=== PATIENT | female | born 1940 | race Caucasian/White ===

== ENCOUNTER 2020-06-02 11:22 | Inpatient (IN) | payer MEDICARE, OTHER ==
[~2020-06-02] VITALS: Ht 172.7 cm; Wt 61.4 kg
[~2020-06-02 11:22] MED LIST: ALPRAZOLAM0.5 MG PO; AMLODIPINE BES2.5 MG PO; ARMOUR THYROID60 MG PO; ASPIR-LOW81 MG PO; BALMEX100 GM TOP; BENEFIBER236 GM; COCONUT OIL1000 MG PO; DAILY VITAMIN1 EAC2 PO; LEVOTHYROXINE50 MCG PO; NICODERM CQ1 EAC1 TD; OMEPRAZOLE40 MG PO; PERCOCET 5-3251 EACH PO; PROMETHAZINE HC25 M1 PO; VITAMIN B-121000 MCG PO; VITAMIN D1000 UNI1 PO; ZITHROMAX TRI-500 MG PO; ZOFRAN4 MG PO
[2020-06-05] MEDS ORDERED: VIT C-ROSE HIP500 MG PO (15:04)
[2020-06-05] MEDS ORDERED: OMEPRAZOLE20 MG PO (15:06)
[2020-06-05] MEDS ORDERED: WELLBUTRIN SR150 MG PO (15:06)
[2020-06-05] MEDS ORDERED: REVLIMID2.5 MG PO (15:07)
[2020-06-05] MEDS ORDERED: MIRALAX17 GM PO (15:08)
--- NOTE | 2020-06-14 08:37 | NUR ---
06/14/20 0837 Valerie Anthony 0825- PT TO PACU IN SF POSITION. EYES CLOSED DOES NOT RESPOND TO VERBAL OR TACTILE STIMULI. ORAL AIRWAY IN PLACE. BREATHING EASY AND UNLABORED. SPO2 >95% ON 6 L O2 VIA SIMPLE MASK. 0828- PT OPENS EYES AND FOLLOWS COMMANDS. ORAL AIRWAY REMOVED. PT WITH PRODUCTIVE COUGH. SUCTIONING PROVIDED AND HOB ELEVATED. BREATHING EASY AND UNLABORED. VSS. PT DENIES PAIN AND NAUSEA BUT REMAINS VERY DROWSY. 0935- PT CONTINUES WITH INTERMITTANT COUGHING, PRODUCTIVE. SUCTIONING PROVIDED. PT CONTINUES TO DENY PAIN AND NAUSEA. VSS. SPO2 >95% ON ROOM AIR.
--- NOTE | 2020-06-14 09:23 | NUR ---
PATIENT ARRIVES TO ROOM 123 ON CART FROM SURGERY. ASSESSMENT COMPLETED. DENIES PAIN AT THIS TIME. CALL LIGHT IN REACH, BED RAILS UP X2. VITAL OBTAINED.
--- NOTE | 2020-06-14 11:28 | NUR ---
Continues to deny pain. Vitals obtained. Small amount of sanguinous drainage to aric-pad noted. Denies other needs. Call light in [facility], bed rails up X2.
--- NOTE | 2020-06-14 12:56 | NUR ---
DR. WARREN NOTIFIED OF BLOOD PRESSURES BECOMING ELEVATED, PATIENT ASYMPTOMATIC, DENYING PAIN. NO NEW ORDERS AT THIS TIME. NOTIFY DR. WARREN IF CONTINUING TO INCREASE.
--- NOTE | 2020-06-14 14:04 | NUR ---
LYING IN BED. ASSESSMENT COMPLETED. WANTS TO NAP. ALLOWED TO REST. SPOUSE AT BEDSIDE. NO CHANGES TO MIGUEL ANGEL-PAD DRAINAGE.
--- NOTE | 2020-06-14 15:29 | NUR ---
Patient sitting up in bed. States she has a headache at this time. PRN ibuprofen taken. When getting ready to take medication, suddenly becomes nauseated with 500 mL emesis. PRN zofran given. States she will likely take ibuprofen later when nausea subsides. Denies other needs. Spouse at bedside. Call light in reach. Bed rails up X2.
--- NOTE | 2020-06-14 16:06 | NUR ---
States zofran has been effective. Pulse ox continues to alarm when she is trying to sleep. O2 per NC replaced on patient at 1.5 L/min. O2 sats immediately up to 94%. States she does not want motrin at this time. WIll call if she decides she needs it. Spouse remains at bedside, call light in reach.
--- NOTE | 2020-06-14 17:35 | NUR ---
Emesis X1 of 300 mL. Scheduled scopalamine patch applied and meclizine given. Denies other needs.
--- NOTE | 2020-06-14 18:29 | NUR ---
PATIENTS VITALS DONE AND CHARTED. RODRIGUEZ EMPTIED. PATIENT DID NOT WANT ANY CARES DONE JUST WANTS TO SLEEP. NOTHING ELSE NEEDED.
--- NOTE | 2020-06-14 18:34 | NUR ---
Surgery today. Dizziness and emesis X2, scopolamine patch and meclizine given. Remains on O2 at 1.5 L/min per nasal canula, desats with sleep on room air. Continues to deny pain, small amount of sanguinous drainage from surgery. Gibson catheter remains in place.
--- NOTE | 2020-06-14 21:00 | NUR ---
o2 1.5l nc. coop with assessment, dangled to edge of bed and stood up for 1-2 minutes, c/o dizziness and feeling nauseated, declined phenergan "I already has had too much medication. repositoned in bed, scds in place, vag pack with scant amount of red fluid, clean pad given
--- NOTE | 2020-06-14 22:24 | NUR ---
No further c/o feeling nauseated. eye mask in place and ear protectors. IVF infusing w/o problems, f/c, scds. liquids and call light at bedside
--- NOTE | 2020-06-15 00:17 | NUR ---
IVF COMPLETED, DC'D PER ORDERS, AWAKE, NO FURTHER C/O DIZZINES, DENIES NEED FOR ANTIEMETIC MED. F/C AND VAGINAL PACK IN PLACE, AWARE OF TRYING TO GO FOR A WALK SOMETIME LATER. NOT MAGDALENE RECEPTIVE. BED ALARM ON, PER SAFETY, WILL CONTINUE TO MONITOR. NO C/O PAIN, SLA PATENT
--- NOTE | 2020-06-15 02:51 | NUR ---
CALL LIGHT ANSWERED. SBA TO BEDSIDE COMMODE. PATIENT'S PACKING FEEL AND PRIMARY RN NOTIFIED. PATIENT HAD 1 VERY SMALL BOWEL MOVEMENT. PATIENT'S STATED "ITS BLEEDING, I WIPED". PRIMARY RN NOTIFIED. PATIENT IS BACK IN BED. MIGUEL ANGEL PAD PROVIDED. SCD'S AND CPOX ARE BACK ON. CALL LIGHT WITHIN REACH.
--- NOTE | 2020-06-15 02:55 | NUR ---
UP TO BSC, VAG PACKING FELL OUT ON ITS OWN. HAD SMALL BM, F/C PATENT. DENIES C/O LIGHTHEADNES, DECLINES TO RECEIVE ANTIEMETICS, DECLINES TO GO FOR A WALK. "jUST LET ME GO BACK TO BED, I HAVE NOT SLEPT MUCH, AND NOT FEEL GOOD", BACKA TO BED, DECLINES NEED FOR PAIN MED. CALL LIGHT AND FLUIDS AT BEDSIDE
--- NOTE | 2020-06-15 04:12 | NUR ---
In bed O2 1L NC, eyes closed, no s/sx distress, call light and fluids at bedside, f/c patent
--- NOTE | 2020-06-15 05:59 | NUR ---
PT HAS BEEN WEANED OFF O2 FROM 1.5L/NC TO ROOM AIR AT THIS TIME, TOLERATING ROOM AIR WELL, CPOX DC'D. AWAKE AND ALERT, STATED "I HAVE NOT SLEPT AT ALL, THATS WHY I HAD NOT WANTED TO GO FOR A WALK". PT DID DANGLED AND HAS WALKED TO [facility] AT EDGE OF BED, TOLERATED FAIR SHE C/O LIGHTHEADNESS ON RETURN TO BED. PT C/O LIGHTHEADNESS AND N/V AT BEGINING OF SHIFT, DECLINED PHENERGAN AND HAS DECLINED FURTHER C/O FEELING NAUSEATED OR NEEDING PAIN OR ANTIEMETICS. TOLERATING SIPS OF FLUIDS. IVF LR AT 125 INFUAING W/O PROBLOMS. VAGINAL PACKING FELL OFF WHEN PT GOT UP TO BSC. VERY SCANT AMOUNT OF RED VAGINAL DISCHARGE NOTED SINCE THEN. F/C NOT CHRONIC IN PLACE, DRAINING QS, YELLOW URINE. ORDERS STATED TO DC F/C WHEN PT AMBULATING, PT HAS NOT AMBULATED W TOLERANCE. WILL TRY AGAIN. COOP WITH ASSESSMENT, SLIGHTLY IRRITABLE AFFECT AT TIMES BUT REDIRECTABLE AND FOLLOWS INSTRUCTIONS. USES CALL LIGHT.
--- NOTE | 2020-06-15 06:21 | NUR ---
ASSISTED PATIENT WALK AROUND THE HALLWAY X1. PATIENT IS BACK IN BED.
--- NOTE | 2020-06-15 06:25 | NUR ---
PATIENT UP AMBULATING IN HALLWAY WITH JABIER ESTRADA. BACK IN ROOM. MICHAEL D/C'Kiya. COFFEE PROVIDED. CALL LIGHT IN REACH.
--- NOTE | 2020-06-15 07:17 | NUR ---
Report from Villa Barrera RN. Lying in bed, eyes closed. Respirations even and unlabored. Call light in reach, bed rails up X2.
--- NOTE | 2020-06-15 08:15 | NUR ---
PATIENT SITTING ON THE EDGE OF THE BED. WARM WASHCLOTH OFFERED AND TAKEN. CALL LIGHT WITH IN REACH. NO FURTHER NEEDS AT THIS TIME.
[2020-06-15] MEDS ORDERED: NP THYROID15 MG PO (08:29)
--- NOTE | 2020-06-15 08:39 | NUR ---
ASSESSMENT COMPLETED. AM MEDICATIONS ADMINISTERED.
--- NOTE | 2020-06-15 11:00 | NUR ---
Spoke with pt. She lives in [place] with her spouse. She is active and does not use any DME. Is ready for dc, but needs to be able to void. Denies any needs for SDOH, plans on dc to home with spouse and he will assist as needed.
[2020-06-15] MEDS ORDERED: BUPROPION XL150 MG PO (11:13)
--- NOTE | 2020-06-15 11:13 | NUR ---
Up to bathroom to attempt to void. 100 mL of urine output. Bladder scanned for residual, 290 mL noted. States she did not finish voiding due discomfort and burning.
[2020-06-15] MEDS ORDERED: OMEPRAZOLE40 MG PO (11:14)
--- NOTE | 2020-06-15 11:56 | NUR ---
MED REC COMPLETE
--- NOTE | 2020-06-15 12:15 | NUR ---
125 ML URINE OUTPUT WITH SOME INCONTINENCE PER PATIENT. BLADDER SCANNED WITH 309 ML NOTED.
--- NOTE | 2020-06-15 15:13 | NUR ---
Voided X1, states she missed the hat. Bladder scanned with 223 mL in bladder. States she has not been drinking well. Fresh ice water provided. States she is too tired to ambulate in [place] at this time. Ecouraged to ambulate to prevent complications. Verbalizes understanding.
--- NOTE | 2020-06-15 17:39 | NUR ---
DR. WARREN NOTIFIED OF POST VOID RESIDUALS GREATER THAN 200 ML Q VOID. ORDERS TO RESTART RODRIGUEZ.
--- NOTE | 2020-06-15 18:05 | NUR ---
16 FR RODRIGUEZ CATHETER PLACED USING STERILE TECHNIQUE AFTER SITE CLEANSED WITH PROVIDED CLEANSING CLOTHS AND IODINE. BALLOON INFLATED WITH 10 ML STERILE NS. IMMEDIATE RETURN OF STRAW COLORED URINE. PATIENT TOLERATED WITH SOME COMPLAINTS OF DISCOMFORT. DENIES OTHER NEEDS AT THIS TIME.
--- NOTE | 2020-06-15 20:07 | NUR ---
Pt awake, alert and oriented, cooperative with HS assessment. On room air. SL patent. VS WNK, very scant amont of brown/red vginal drainage noted. pad inplace. f/c patent, draining QS yellow urine, SCDS off at her requests, declines to ambulate at this time. "I did not slept well last night, Pranav sick. I want to sleep tonight and then Ill hit the hallways in am. I dont want to be bother tonight, I want to sleep. If I woke up during the night Ill call you so you can do a visual that Pranav ok". call light at bedside
--- NOTE | 2020-06-15 23:25 | NUR ---
walked hallways earlier by self, currently resting, inroom
--- NOTE | 2020-06-16 00:20 | NUR ---
Pt had asked earlier not to bother her, door closed
--- NOTE | 2020-06-16 05:50 | NUR ---
pt awakes easily. Took her own home med Thyroid. fresh water given on room air, very scant amount of vaginal red drainage noted. f/c patent. sl patent. Pt to go for a walk then f/c will be dc'd. Slept all shift. in room
--- NOTE | 2020-06-16 06:36 | NUR ---
Pt states she walked hallways. In bed, calm, f/c dc'd, 10cc water balloon deflated, tip intact. procedure explained, coop. Aware of post void residual checks stated understanding
--- NOTE | 2020-06-16 07:20 | NUR ---
SHIFT REPORT FROM MATTHEW LUDWIG INCLUDED: pt had her in the room with her most of the evening and her has been unpleasant and irritable with nightly cares, "insisting the pt be left alone to sleep better". pt had stable vitals and sufficient urine output through the night and her wiley catheter was DCd this morning by the RN and the pt is due to void, followed by bladder scan. pt currently alert and oriented, sitting up in bed, reading the newspaper with her at bedside. pt was pleasant and cooperative upon greeting, was aggressively questioning her care plans for the day. pt and reassured that we would take good care of her and informed of known cares for the day and told that they would be updated when I knew more or got more information. Both seemed to respond well to therapeutic communication. pt in bed, table and call light within reach. pt verbalized that she would call us when she had her first void this morning.
--- NOTE | 2020-06-16 08:45 | NUR ---
MED PASS + ASSESSMENT pt assessment complete, VSS. pt reports that she has not been able to void at this time. Gibson was pulled at 0630 this morning. pt has hat in toilet and verbalized understanding of need to void and post risidual bladder scan to follow. pt was able to take all morning meds without difficulty, refusing the welbutrin. pt denies further needs at this time, table and call light within reach.
--- NOTE | 2020-06-16 10:00 | NUR ---
ROUNDING Came to give prn pain medicivine, pt reports another nurse had already administered this. Returned med. Pt attempted to void, unable to void. Pt sitting up in bed, talking with her who is at bedside.
--- NOTE | 2020-06-16 11:07 | NUR ---
Pt seen ambulating through halls unassisted, accompanied by her . SN Hugo.
--- NOTE | 2020-06-16 12:00 | NUR ---
ABDIAZIZ + CALLED pt in room visiting with . pt was able to void an unmeasured amount into toilet, and her residual volume in bladder was 152mls. MD Called and notified, came down to visit pt and wanted to have another trial void before considering DC to home. pt and her anticipating DC. pt in bed, table and call light within reach.
--- NOTE | 2020-06-16 13:00 | NUR ---
ROUNDING pt in room visiting with . pt denies pain and nausea at this time. pt reports that she is anxious to go home and is hopeful she wont need a wiley catheter. pt given lunch by her . pt able to eat the majority of her meal. pt denies further needs at this time, table and call light within reach.
--- NOTE | 2020-06-16 14:00 | NUR ---
ROUNDING patient is up ambulating the halls with her at this time.
[2020-06-16] MEDS ORDERED: IBUPROFEN800 MG PO (14:31)
[2020-06-16] MEDS ORDERED: SENNA-S LAXATI1 EACH PO (14:35)
--- NOTE | 2020-06-16 15:00 | NUR ---
ROUNDING pt in room visiting with . pt denies pain and nausea at this time. pt denies further needs at this time, table and call light within reach.
--- NOTE | 2020-06-16 15:23 | NUR ---
No change in plan for dc.
--- NOTE | 2020-06-16 16:00 | NUR ---
ROUNDING pt in room visiting with . pt denies pain and nausea at this time. pt was able to void again and this time she had 100mls out and residual of 102 pt denies further needs at this time, table and call light within reach.
--- NOTE | 2020-06-20 17:52 | OR ---
[facility] [address], [place] [address] Signed DATE OF OPERATION: 06/14/2020 SURGEON: Maritza Luz MD AUTOMATIC MOLD SANDER: Harpreet Block MD. PREOPERATIVE DIAGNOSES: Cystocele and rectocele. POSTOPERATIVE DIAGNOSIS: Rectocele. PROCEDURE: Rectocele repair. ANESTHESIA: Spinal with IV sedation. ESTIMATED BLOOD LOSS: 25 mL. DRAINS: Gibson catheter. PACKS: Vaginal. INDICATIONS AND FINDINGS: The patient is a 80-year-old female status post prior A and P repair with enterocele resection many years ago, who presented with recurrent vaginal prolapse and pressure. In the office, it was felt that she had a recurrent cystocele as well as rectocele. However at the time of surgery, there was no significant cystocele, but there was a significant rectocele, which was also fairly high in the vault. DESCRIPTION OF PROCEDURE: The patient was prepped and draped in the dorsal lithotomy position. A Gibson catheter was placed. The vaginal exam done and the conclusion made that there was no significant cystocele requiring repair. The rectocele repair was then begun. A triangle of tissue was removed from the perineal body with the knife. The vaginal mucosa was then Electronically Signed By: MARITZA LUZ MD 06/20/20 1752 PATIENT NAME: JAMESON ORELLANA OPERATIVE REPORT DATE OF : 44 REPORT #: [id number] PHYSICIAN: MARITZA LUZ MD PCP: MINERVA THOMAS NP REPORT IS CONFIDENTIAL AND NOT TO BE RELEASED WITHOUT AUTHORIZATION [facility] [address], [place] [address] Signed undermined and incised in the midline to the apex of the vagina. There was quite a bit of scarring present. The vaginal mucosa was from the underlying tissue which sharp dissection. There was bulging, which was reminiscent of an enterocele noted. A rectal examination was done which confirmed there was no enterocele present, but this was a high rectocele. Following this, the defect was reduced with interrupted sutures of 0 Vicryl. A traditional repair was done plicating the levator muscles in the midline as there was no remaining perirectal fascial type tissue. Approximately 5 sutures were placed reducing the rectocele defect. Following this, a rectal examination was done which confirmed that there were no sutures compromising the rectal lumen. Good reduction of the defect was noted. The vaginal mucosa was then trimmed a large amount as there was quite a bit of redundancy. The vaginal mucosa was then closed with a running suture of 2-0 Vicryl. This was begun at the apex of the vagina and carried down to the hymenal ring. Following this, the perineal body was rebuilt with interrupted sutures of 2-0 Vicryl in the transverse perinei. The posterior fourchette was recreated with a running suture of 2-0 Vicryl. The skin of the perineum was closed with subcuticular sutures of 2-0 Vicryl. Inspection of the vault showed no evidence of ongoing bleeding. There was narrowing which was fairly significant at the apex. The vaginal canal was then packed with Premarin-coated gauze. All sponge and needle counts were correct. She tolerated the procedure well and was taken to the recovery room in good condition. Maritza Luz MD PJW/MODL /[id number] cc: MD Minerva Santillan NP Copies: HARPREET BLOCK MD, MICHELLE NP ~ Electronically Signed By: MARITZA LUZ MD 06/20/20 1752 PATIENT NAME: JAMESON ORELLANA OPERATIVE REPORT DATE OF : 44 REPORT #: [id number] PHYSICIAN: MARITZA LUZ MD PCP: MINERVA THOMAS NP REPORT IS CONFIDENTIAL AND NOT TO BE RELEASED WITHOUT AUTHORIZATION
== END 2020-06-16 17:30 | disposition home or self-care (01) | DRG 748 ==
LOC: MS 06-14 05:45 → DSVR 06-14 05:45 → MS 06-14 06:45
PROVIDERS: ADMIT Obstetrics & Gynecology; ATTEND Obstetrics & Gynecology
PROC: 0JQC0ZZ Repair Pelvic Region Subcutaneous Tissue and Fascia, Open Approach (ICD-10-PCS; principal; 2020-06-14 06:45)
DX: N81.6 Rectocele (principal); D46.9 Myelodysplastic syndrome, unspecified; I10 Essential (primary) hypertension; E03.9 Hypothyroidism, unspecified; K21.9 Gastro-esophageal reflux disease without esophagitis; M15.9 Polyosteoarthritis, unspecified; N39.41 Urge incontinence; R42 Dizziness and giddiness; K59.00 Constipation, unspecified; Z88.1 Allergy status to other antibiotic agents; Z88.5 Allergy status to narcotic agent; Z88.8 Allergy status to other drugs, medicaments and biological substances; Z79.82 Long term (current) use of aspirin; Z79.899 Other long term (current) drug therapy; Z87.891 Personal history of nicotine dependence
CPT/HCPCS: 00942; 36415; 80048; 85027; J1644; J2001; J2250; J2274; J2405; J2704; J2765; J7121